=== PATIENT | male | born 1970 | race Caucasian/White ===

== ENCOUNTER → 2017-01-20 | Day surgery (SDC) | payer OTHER ==
[~2017-01-20] MED LIST: ALBUTEROL17 GM INH; AMLODIPINE BESY10 MG PO; LISINOPRIL20 MG PO; MOBIC PO; OMEPRAZOLE40 M1 PO
--- NOTE | ~2017-01-20 | OR ---
Unit #: [id number] #: [id number] Patient: JODY SHAH [id number] [address] [address] [id number] MR#: [id number] NAME: JODY SHAH. ROOM: Date of Procedure: 01/20/2017 Admission Date: 01/20/2017 Surgeon: Edgar Watson III, M.D. : 1970 Attending Physician: Edgar Watson III, M.D. Primary Care Physician: Moon Florez M.D. OPERATIVE REPORT PREOPERATIVE DIAGNOSIS Dysphagia, status post laparoscopic Holly. POSTOPERATIVE DIAGNOSES Esophagitis and gastritis. PROCEDURE PERFORMED Esophagogastroduodenoscopy with biopsy. ANESTHESIA MAC. SPECIMENS Antrum was sent for YULIANA testing and distal esophagus was biopsied multiple times. COMPLICATIONS None apparent. INDICATIONS FOR PROCEDURE This is a 46-year-old gentleman, who underwent laparoscopic Holly fundoplication in 06/2016. He did fine initially, but here recently has been having some worsening dysphagia. He is here today for upper endoscopy. DESCRIPTION OF PROCEDURE After consent was obtained, the patient was brought to the endoscopy suite and placed in the left lateral decubitus position. We titrated the above sedation and I passed an EGD scope easily into the esophagus under direct visualization. There were no strictures. 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 I advanced the scope through the opening of the wrap. There was no obstruction at the level of the wrap that I could tell. He had some mild gastritis in the antrum of the stomach. The pylorus was patent and the first and second portions of the duodenum appeared normal. I then took a biopsy of the antrum for YULIANA testing. I retroflexed the scope within the cardia and did not see any recurrence of his hiatal hernia. I then took four-quadrant biopsies at about 35 cm of the distal esophagus. I am doing this primarily to rule out candidal esophagitis and also further evaluate his history of Mcghee esophagitis. The scope was then straightened and carefully withdrawn. The patient tolerated the procedure without any problems and returned to the recovery Unit #: [id number] #: [id number] Patient: JODY SHAH room in stable condition. I will have him call my office early next week for biopsy results. Dictated by... Edgar Watson III, M.D. VCL/rick TD: 01/20/2017 08:05 JOB #: [id number] OPERATIVE REPORT Page 1 of 1 X Edgar Watson III, MD PROCEDURE OPERATIVE NOTE
== END | disposition home or self-care (01) ==
LOC: COPS 05:31
DX: K21.0 Gastro-esophageal reflux disease with esophagitis (principal); K29.70 Gastritis, unspecified, without bleeding; R13.10 Dysphagia, unspecified; Z98.890 Other specified postprocedural states; Z87.19 Personal history of other diseases of the digestive system; J44.9 Chronic obstructive pulmonary disease, unspecified; F17.200 Nicotine dependence, unspecified, uncomplicated
CPT/HCPCS: 87077; 88305; J2250